=== PATIENT | male | born 1960 | race Caucasian/White ===

== ENCOUNTER → 2017-11-10 | Outpatient (CLI) | payer BC ==
[2017-11-11 17:18] LABS: Influenza A Negative (NEGATIVE); Influenza B Positive (NEGATIVE)
== END | disposition home or self-care (01) ==
LOC: LAB 17:02 → LAB SHORT 17:02
PROVIDERS: Nurse Practitioner Family
DX: J02.9 Acute pharyngitis, unspecified (principal)
CPT/HCPCS: 87804

== ENCOUNTER 2023-03-07 14:39 | Inpatient (IN) | payer BC ==
[~2023-03-07] VITALS: Ht 175.3 cm; Wt 147.4 kg
[2023-03-07 15:21] LABS: BASOPHILS ABSOLUTE AUTO 0.03 K/mm3 (0.00-0.23); BASOPHILS PERCENT AUTO 0 % (0-2); EOSINOPHILS ABSOLUTE AUTO 0.11 K/mm3 (0.00-0.68); EOSINOPHILS PERCENT AUTO 1 % (0-6); Hematocrit 37.7 % (37.0-53.0); Hemoglobin 11.9 g/dL (13.5-17.5); IMMATURE GRAN ABSOLUTE AUTO 0.06 K/mm3 (0.00-0.10); IMMATURE GRAN PERCENT AUTO 1 % (0-1); LYMPHOCYTES PERCENT AUTO 11 % (21-46); MONOCYTES ABSOLUTE AUTO 0.72 K/mm3 (0.16-1.47); MONOCYTES PERCENT AUTO 7 % (4-13); Mean Corpuscular HGB 31.9 pg (26.0-34.0); Mean Corpuscular HGB Conc 31.6 g/dL (31.5-36.5); Mean Corpuscular Volume 101 fL (80-100); Mean Platelet Volume 12.2 fL (9.1-12.4); NEUTROPHILS ABSOLUTE AUTO 8.76 K/mm3 (1.96-9.15); NEUTROPHILS PERCENT AUTO 81 % (41-73); NRBC ABSOLUTE 0.06 K/mm3 (0.00-0.02); NRBC Auto 0.6 /100 WBC (0.0-0.2); Platelet Count 203 K/mm3 (150-400); RDW Coefficient Variation 15.1 % (11.7-14.2); Red Blood Cell Count 3.73 M/mm3 (4.30-5.90); White Blood Cell Count 10.88 K/mm3 (4.00-11.30)
[2023-03-07 15:38] LABS: Albumin, Blood 3.7 g/dL (3.4-5.0); Albumin/Globulin Ratio 1.2 (0.8-1.8); Bilirubin, Total 0.7 mg/dL (0.1-1.0); Bun/Creatinine Ratio 26.8 (12.0-20.0); Calcium, Blood 8.8 mg/dL (8.5-10.1); Creatinine, Blood 0.93 mg/dL (0.60-1.20); Globulin, Blood 3.2 g/dL (2.2-4.0); Potassium, Blood 4.1 mmol/L (3.5-5.5); Total Protein, Blood 6.9 g/dL (6.4-8.2)
[2023-03-07] MEDS ORDERED: GLIP5ER PO (16:26)
[2023-03-07] MEDS ORDERED: LOSA50 PO ×2 (16:26→16:27)
[2023-03-07] MEDS ORDERED: ACTOS30 MG PO ×2 (16:26→16:27)
[2023-03-07] MEDS ORDERED: INDO50 PO (16:27)
[2023-03-07] MEDS ORDERED: METO25ER PO (16:27)
[2023-03-07] MEDS ORDERED: AMLODIPINE BESYL5 MG PO (16:27)
[2023-03-07] MEDS ORDERED: LIPITOR80 MG PO (16:28)
[2023-03-07] MEDS ORDERED: METFORMIN HCL500 M3 PO (16:28)
[2023-03-07] MEDS ORDERED: ALLO300 PO (16:28)
[2023-03-07 16:32] LABS: Base Excess Venous 9.1 mmol/L; Bicarbonate Venous 31.2 mmol/L (24.0-30.0); PCO2 Venous 60.2 mmHg (38-42); pH Blood Venous 7.37 (7.34-7.37)
[2023-03-07 18:24] VITALS: BP 152/95
[2023-03-07 19:36] VITALS: BP 159/93
[2023-03-07 20:00] LABS: Base Excess Venous 11.2 mmol/L; Bicarbonate Venous 33.4 mmol/L (24.0-30.0); PCO2 Venous 51.4 mmHg (38-42); pH Blood Venous 7.45 (7.34-7.37)
[2023-03-07] MEDS ORDERED: ASPI81CH PO (20:46)
[2023-03-07] MEDS ORDERED: MULVITA PO (20:47)
[2023-03-07 23:21] VITALS: BP 150/92
[2023-03-08 03:32] VITALS: BP 166/83
[2023-03-08 04:10] LABS: BASOPHILS ABSOLUTE AUTO 0.04 K/mm3 (0.00-0.23); BASOPHILS PERCENT AUTO 0 % (0-2); EOSINOPHILS ABSOLUTE AUTO 0.17 K/mm3 (0.00-0.68); EOSINOPHILS PERCENT AUTO 1 % (0-6); Hematocrit 39.2 % (37.0-53.0); Hemoglobin 12.2 g/dL (13.5-17.5); IMMATURE GRAN ABSOLUTE AUTO 0.13 K/mm3 (0.00-0.10); IMMATURE GRAN PERCENT AUTO 1 % (0-1); LYMPHOCYTES ABSOLUTE AUTO 1.17 K/mm3 (0.84-5.20); LYMPHOCYTES PERCENT AUTO 9 % (21-46); MONOCYTES ABSOLUTE AUTO 0.67 K/mm3 (0.16-1.47); MONOCYTES PERCENT AUTO 5 % (4-13); Mean Corpuscular HGB 31.7 pg (26.0-34.0); Mean Corpuscular HGB Conc 31.1 g/dL (31.5-36.5); Mean Corpuscular Volume 102 fL (80-100); Mean Platelet Volume 12.5 fL (9.1-12.4); NEUTROPHILS ABSOLUTE AUTO 10.53 K/mm3 (1.96-9.15); NEUTROPHILS PERCENT AUTO 83 % (41-73); NRBC ABSOLUTE 0.08 K/mm3 (0.00-0.02); NRBC Auto 0.6 /100 WBC (0.0-0.2); Platelet Count 203 K/mm3 (150-400); RDW Coefficient Variation 15.2 % (11.7-14.2); RDW Standard Deviation 54.8 fL (35.1-46.3); Red Blood Cell Count 3.85 M/mm3 (4.30-5.90); White Blood Cell Count 12.71 K/mm3 (4.00-11.30)
[2023-03-08 04:28] LABS: Albumin, Blood 3.6 g/dL (3.4-5.0); Albumin/Globulin Ratio 1.1 (0.8-1.8); Bilirubin, Total 0.6 mg/dL (0.1-1.0); Bun/Creatinine Ratio 23.5 (12.0-20.0); Calcium, Blood 8.7 mg/dL (8.5-10.1); Creatinine, Blood 0.98 mg/dL (0.60-1.20); Globulin, Blood 3.3 g/dL (2.2-4.0); Magnesium, Blood 1.5 mg/dL (1.6-2.4); Potassium, Blood 4.1 mmol/L (3.5-5.5); Total Protein, Blood 6.9 g/dL (6.4-8.2)
--- NOTE | 2023-03-08 06:05 | NUR ---
SHIFT SUMMARY PATIENT ALERT AND ORIENTED x4, PLEASANT AND COOPERATIVE WITH CARE, ABLE TO MAKE NEEDS KNOWN TO STAFF. BP STABLE, TELE READING SINUS RHYTHM WITH 1ST DEGREE HB 70s-80s, REMAINS ON 6L NC WITH O2 SAT LOW TO MID 90s. PATIENT WOULD DESAT INTO MID 80s DURING DEEP SLEEP. PATIENT DECLINED CPAP. RT AWARE. PATIENT STANDBY ASSIST TO BATHROOM, ADEQUATE OUTPUT THIS SHIFT. NO OTHER SIGNIFICANT CHANGES THIS SHIFT, WILL REPORT TO DAY SHIFT RN. PATIENT EDUCATED ON IGNTION RISK. PATIENT VERBALIZED UNDERSTANDING. NO IGNITION RISK NOTED AT THIS TIME. WILL CONTINUE TO MONITOR RISK.
[2023-03-08 07:41] VITALS: BP 139/74
[2023-03-08 11:50] VITALS: BP 174/95
[2023-03-08 16:04] VITALS: BP 159/73
--- NOTE | 2023-03-08 18:24 | NUR ---
SHIFT SUMMARY; ASSUMED CARE AT 0700. A/A/OX4, INDEPNDANT IN ROOM. 02 VIA NC 5L SATS 93%. ECHO COMPLETED TODAY. DENIES CHEST PAIN. MEDS PER EMAR. VSS, WILL CONTINUE TO MONITOR AND TREAT UNTIL CHANGE OF SHIFT.
[2023-03-08 19:38] VITALS: BP 144/83
--- NOTE | 2023-03-08 21:08 | NUR ---
ASSUMPTION OF CARE THIS RN ASSUMED CARE OF PATIENT AT 1900. REPORT TAKEN FROM ALTHEA GRIDER. PT ON 5L VIA NC WITH SPO2 >92%. BLE EDEMA NOTED. PT A&O X4. PT EDUCATED ON USING URINAL FOR ACCURATE I/O'S, PT VERBALIZED UNDERSTANDING. INDEPENDENT WITH ADL'S. CONTINUOUS SPO2 MONITORING. OTHER VITALS STABLE AT THIS TIME. BED IN LOWEST POSITION AND CALL LIGHT WITHIN REACH.
[2023-03-08 23:19] VITALS: BP 134/84
[2023-03-09 03:27] VITALS: BP 146/94
[2023-03-09 03:51] LABS: Hematocrit 37.9 % (37.0-53.0); Hemoglobin 11.5 g/dL (13.5-17.5); Mean Corpuscular HGB 31.4 pg (26.0-34.0); Mean Corpuscular HGB Conc 30.3 g/dL (31.5-36.5); Mean Corpuscular Volume 104 fL (80-100); Mean Platelet Volume 12.2 fL (9.1-12.4); NRBC ABSOLUTE 0.05 K/mm3 (0.00-0.02); NRBC Auto 0.5 /100 WBC (0.0-0.2); Platelet Count 183 K/mm3 (150-400); RDW Coefficient Variation 14.9 % (11.7-14.2); RDW Standard Deviation 55.7 fL (35.1-46.3); Red Blood Cell Count 3.66 M/mm3 (4.30-5.90); White Blood Cell Count 10.05 K/mm3 (4.00-11.30)
[2023-03-09 04:18] LABS: Albumin, Blood 3.3 g/dL (3.4-5.0); Bilirubin, Total 0.7 mg/dL (0.1-1.0); Globulin, Blood 3.2 g/dL (2.2-4.0); Magnesium, Blood 1.6 mg/dL (1.6-2.4); Potassium, Blood 3.9 mmol/L (3.5-5.5); Thyroid Stimulating Hormone 0.389 uIU/mL (0.360-4.800); Total Protein, Blood 6.5 g/dL (6.4-8.2)
--- NOTE | 2023-03-09 04:57 | NUR ---
SHIFT SUMMARY NO ACUTE CHANGES OVERNIGHT. PT ON 5-6L VIA NC TO MAINTAIN SPO2 >90%. PT NOTED TO DESAT BRIEFLY WHILE SLEEPING; PT REPORTS NEEDING A SLEEP STUDY IN THE PAST FOR SLEEP APNEA BUT HAS BEEN "PUTTING IT OFF". BP STABLE. SR ON MONITOR WITH HR 70'S. DYSPNEA NOTED WITH EXERTION. PT USING URINAL FOR ACCURATE I&O'S. A&O X4. ABLE TO MAKE NEEDS KNOWN. FIRE/IGNITION SAFETY EDUCATION AND ASSESSMENT DONE. NO IGNITION SOURCE NOTED. PT VERBALIZED UNDERSTANDING. BED IN LOWEST POSITION AND CALL LIGHT WITHIN REACH. THIS RN WILL CONTINUE TO MONITOR UNTIL SHIFT CHANGE AT 0700.
[2023-03-09 08:23] VITALS: BP 165/95
[2023-03-09 11:38] VITALS: BP 143/82
--- NOTE | 2023-03-09 13:31 | NUR ---
ASSUMED CARE OF PT AT 0700 THIS AM. PT AWAKE, A&OX4. FIRE SAFETY EDUCATION REVIEWED WITH PT, HE VERBALIZES UNDERSTANDING AND DENIES ANY SOURCES OF IGNITION IN HIS POSESSION. PT IS ABLE TO USE CALL LIGHT FOR NEEDS, CALL LIGHT IN REACH. PT DENIES NEEDS AT THIS TIME. WILL CONTINUE TO MONITOR AND CARE FOR PT.
[2023-03-09 16:18] VITALS: BP 146/94
--- NOTE | 2023-03-09 18:24 | NUR ---
NO ACUTE CHANGES T/O THE SHIFT. PT CONTINUES TO REQUIRE 6L O2 VIA NC, DESATS WITH EXERTION. ECHO READ AND DR HUNT IN TO SEE PT AND HIS TO DISCUSS RESULTS AND CARE PLAN. PT HAS HAD NO COMPLAINTS, NO PAIN. DIURESIS EFFECTIVE, PT HAS HAD OVER 2000ML OUT TODAY. D-DIMER NEGATIVE. FIRE SAFETY INCLUDED IN HOURLY ROUNDING. PT IS ABLE TO USE CALL LIGHT FOR NEEDS, CALL LIGHT IN REACH, WILL CONTINUE TO MONITOR AND GIVE REPORT TO NOC SHIFT RN.
[2023-03-09 20:33] VITALS: BP 143/82
[2023-03-09 23:19] VITALS: BP 156/95
[2023-03-10 03:51] VITALS: BP 148/87
[2023-03-10 04:16] LABS: Hematocrit 36.8 % (37.0-53.0); Hemoglobin 11.3 g/dL (13.5-17.5); Mean Corpuscular HGB 31.2 pg (26.0-34.0); Mean Corpuscular HGB Conc 30.7 g/dL (31.5-36.5); Mean Corpuscular Volume 102 fL (80-100); Mean Platelet Volume 12.7 fL (9.1-12.4); Platelet Count 166 K/mm3 (150-400); RDW Coefficient Variation 14.6 % (11.7-14.2); Red Blood Cell Count 3.62 M/mm3 (4.30-5.90); White Blood Cell Count 9.66 K/mm3 (4.00-11.30)
[2023-03-10 04:34] LABS: Bun/Creatinine Ratio 22.8 (12.0-20.0); Calcium, Blood 8.4 mg/dL (8.5-10.1); Creatinine, Blood 1.01 mg/dL (0.60-1.20); Magnesium, Blood 1.5 mg/dL (1.6-2.4); Potassium, Blood 3.3 mmol/L (3.5-5.5)
--- NOTE | 2023-03-10 05:06 | NUR ---
SHIFT SUMMARY NO ACUTE CHANGES OVERNIGHT. PT CONTINUES TO NEED 5-6L VIA NC TO MAINTAIN SPO2 >90%. APNEIC PERIODS NOTED WHILE SLEEPING. BP STABLE. SR ON MONITOR WITH PAC'S, HR 60-70'S. AFEBRILE. PT DENIES SOB AT REST. INDEPENDENT WITH ADL'S. USING URINAL WITH URINATION FOR ACCURATE I/O'S. PT DENIES IGNITON RISK. VERBALIZED UNDERSTANDING ON FIRE/IGNITION SAFETY EDUCATION WHILE WEARING O2 AND WHILE IN THE HOSPITAL. CALLING APPROPRIATELY. BED IN LOWEST POSITION AND CALL LIGHT WITHIN REACH. THIS RN WILL CONTINUE TO MONITOR UNTIL SHIFT CHANGE AT 0700.
[2023-03-10 07:35] VITALS: BP 150/81
[2023-03-10 11:24] VITALS: BP 123/71
--- NOTE | 2023-03-10 12:54 | NUR ---
Dr. Sue is here seeing the patient.
[2023-03-10 15:54] VITALS: BP 141/84
--- NOTE | 2023-03-10 16:48 | NUR ---
Pt's states that her blood pressure normally is 90s systolic, occasionally low 100s. Pt c/o nausea again, and was given zofran at this time. Vital signs are stable.
[2023-03-10 19:41] VITALS: BP 125/69
[2023-03-11] VITALS (13 sets, daily range): BP systolic 121–155; BP diastolic 64–93
[2023-03-11 03:58] LABS: CHOL/HDL RATIO 2.6; Cholesterol 132 mg/dL (50-200); HDL Cholesterol 51 mg/dL (>39); LDL/HDL RATIO 1.2; Low Density Lipoprotein Chol 60 mg/dL (0-110); Triglycerides 103 mg/dL (30-160); Very Low Density Lipoprot Chol 20 mg/dL (6-32)
--- NOTE | 2023-03-11 05:30 | NUR ---
SHIFT SUMMARY THIS RN ASSUMED CARE OF PATIENT AT 1900. NO ACUTE CHANGES DURING THIS SHIFT. BP STABLE. SR WITH PAC'S NOTED ON MONITOR WITH HR 60-70'S. AFEBRILE. ON 2-4L VIA NC WITH SPO2 >92%. A&O X4. ABLE TO MAKE NEEDS KNOWN. PT HAS BEEN NPO SINCE MIDNIGHT FOR LIKELY ANGIO PROCEDURE THIS AM. USING URINAL INDEPENDENTLY. PT & FAMILY EDUCATED RE: IGNITION SOURCES AND RISK OF INJURY WHILE OXYGEN IS IN USE. PT DENIES SMOKING & PT VERBALIZED UNDERSTANDING. BED IN LOWEST POSITION AND CALL LIGHT WITHIN REACH. THIS RN WILL CONTINUE TO MONITOR UNTIL SHIFT CHANGE AT 0700.
--- NOTE | 2023-03-11 07:30 | NUR ---
Pt was taken in his bed to the heart center for angiogram.
[2023-03-11 09:43] LABS: Hematocrit 37.9 % (37.0-53.0); Hemoglobin 12.2 g/dL (13.5-17.5); Mean Corpuscular HGB 31.6 pg (26.0-34.0); Mean Corpuscular HGB Conc 32.2 g/dL (31.5-36.5); Mean Corpuscular Volume 98 fL (80-100); Mean Platelet Volume 11.5 fL (9.1-12.4); Platelet Count 163 K/mm3 (150-400); RDW Coefficient Variation 14.6 % (11.7-14.2); RDW Standard Deviation 51.9 fL (35.1-46.3); Red Blood Cell Count 3.86 M/mm3 (4.30-5.90); White Blood Cell Count 10.65 K/mm3 (4.00-11.30)
[2023-03-11 10:11] LABS: Alanine Aminotransfer (ALT/SGP 40 U/L (12-78); Albumin, Blood 3.4 g/dL (3.4-5.0); Alk Phos 86 U/L (50-136); Anion Gap Unable to Calculate mmol/L (6-16); Aspartate Aminotrans (AST/SGOT 20 U/L (12-37); Bilirubin, Total 0.8 mg/dL (0.1-1.0); Blood Urea Nitrogen 23 mg/dL (8-24); Bun/Creatinine Ratio 24.4 (12.0-20.0); Calcium, Blood 8.8 mg/dL (8.5-10.1); Chloride, Blood 85 mmol/L (98-108); Creatinine, Blood 0.94 mg/dL (0.60-1.20); Globulin, Blood 3.4 g/dL (2.2-4.0); Glomerular Filtration Rate 91 (60-); Glucose, Blood 150 mg/dL (70-99); Potassium, Blood 3.3 mmol/L (3.5-5.5); Sodium, Blood 138 mmol/L (136-145); Total Protein, Blood 6.8 g/dL (6.4-8.2)
[2023-03-11 10:13] LABS: CO2, Blood >45 mmol/L (21-32)
--- NOTE | 2023-03-11 10:43 | NUR ---
Pt returned from the heart center to PCU 7 at 0925. He is alert, oriented and has 4 family/friends at the bedside. Vital signs are stable except that his spo2 dropped to 85% and is requiring oxygen at 4 l/min to keep spo2 90% at least. No dyspnea, no discomfort, and no c/o of pain. Denies any chest discomfort nor right arm/hand discomfort where the arterial access was done for the angiogram. White immobilizer in place to restrict movement of the right wrist during recovery. PT was advised of the activity restrictions, and to call staff for supervision during any activity OOB during this recovery period. Right wrist site was visualized upon return to the room, and over the last hour. Site remains without any bleeding, swelling, numbness, pain, tingling nor bruising. Capillary refill in the right hand fingers is 2 seconds. TR band is in place, reportedly with 12 cc air in the band. Pt ate breakfast and took oral and IV medications after return. Hospitalist Dr. Cohen here to see the patient. New order noted after lab reported elevated Carbon dioxide level.
--- NOTE | 2023-03-11 12:20 | NUR ---
3 cc air removed from the TR band.
--- NOTE | 2023-03-11 13:35 | NUR ---
TR Band is now fully deflated. Site remains without any swelling, bruising, nor bleeding. Pt has no discomfort.
--- NOTE | 2023-03-11 14:57 | NUR ---
TR band was removed 1 hour after deflation. Cleaned the area with rubbing alcohol and applied sterile tegederm. No bruising, no bleeding, no swelling. White immobilizer board was replaced and pt reminded of the activity restrictions.
--- NOTE | 2023-03-11 18:15 | NUR ---
Pt has been sleepy most of the day. Awakens for meals, toileting, and conversations. expressed concern about his mild confusion, noted since he came back from angiogram this morning at 0930. Confusion could be from lack of sleep, interrupted sleep (diuretics, wakened at MN and 0300 for vital signs & labs), elevated CO2 levels post angiogram, and medications given during the angiogram. The pt says that he feels a little "foggy". Appropriate in conversation, and using his call light when he needs to get up to toilet.
--- NOTE | 2023-03-11 21:42 | NUR ---
METOPROLOL PT HAS HAD SOME CONFUSION OVERNIGHT. PT CHEWED AND SWALLOWED HIS 2100 DOSE OF METOPROLOL EXTENDED RELEASED. PT WAS EDUCATED THAT HE IS NOT TO CHEW THIS PILL IT IS EXTENDED RELEASED. LOT PORTERCHEO CALDERA MADE AWARE. NO ACUTE EVENTS ON TELE OVERNIGHT, AND NO ACUTE CHANGES IN BLOOD PRESSURE.
[2023-03-12 00:14] VITALS: BP 148/79
[2023-03-12 04:14] LABS: Hematocrit 38.4 % (37.0-53.0); Hemoglobin 12.5 g/dL (13.5-17.5); Mean Corpuscular HGB 31.5 pg (26.0-34.0); Mean Corpuscular HGB Conc 32.6 g/dL (31.5-36.5); Mean Corpuscular Volume 97 fL (80-100); Mean Platelet Volume 12.1 fL (9.1-12.4); Platelet Count 170 K/mm3 (150-400); RDW Coefficient Variation 14.4 % (11.7-14.2); RDW Standard Deviation 50.4 fL (35.1-46.3); Red Blood Cell Count 3.97 M/mm3 (4.30-5.90); White Blood Cell Count 10.34 K/mm3 (4.00-11.30)
[2023-03-12 04:43] LABS: Albumin, Blood 3.5 g/dL (3.4-5.0); Bilirubin, Total 0.8 mg/dL (0.1-1.0); Bun/Creatinine Ratio 25.4 (12.0-20.0); Calcium, Blood 9.2 mg/dL (8.5-10.1); Creatinine, Blood 1.18 mg/dL (0.60-1.20); Globulin, Blood 3.4 g/dL (2.2-4.0); Magnesium, Blood 1.7 mg/dL (1.6-2.4); Potassium, Blood 2.6 mmol/L (3.5-5.5); Total Protein, Blood 6.9 g/dL (6.4-8.2)
[2023-03-12 04:57] VITALS: BP 127/67
--- NOTE | 2023-03-12 05:53 | NUR ---
SHIFT SUMMARY PT HAS RESTED T/O THE NIGHT. S/P ANGIO, RADIAL SITE WNL. DRESSING C/D/I, AND ARM BOARD IN PLACE. PT A LITTLE MORE CONFUSED POST SURGERY. PT SLEEPS DEEPLY AND WHEN HE WAKES TO USE THE BATHROOM HE IS IMPULSIVE AND CONFUSED TO HIS SURROUNDINGS. HOWEVER A FEW MINUTES AFTER WAKING PT IS A/OX4 AND ANSWERS MY QUESTIONS APPROPRIATELY. PT AWOKE OUT OF A DEEP SLEEP REMOVED HIS TELE AND WANDERED INTO THE HALLWAY WITHOUT A SHIRT LOOKING FOR THE BATHROOM, BED ALARM IN PLACE FOR SAFETY. VITALS ARE STABLE. PT ON 4.5 L, WHILE SLEEPING PT DESATS IN THE 80'S. SATS WNL ON 4.5L. RESP E/U. NO OTHER CHANGES TO REPORT OVERNIGHT. BED IN LOWEST POSITION, CALL LIGHT WITHIN REACH.
--- NOTE | 2023-03-12 06:00 | NUR ---
FIRE RISK ASSESSED THIS SHIFT, PT EDUCATED ON FIRE RISKS AND IGNITION SOURCES. PT DENIES HAVING IGNITION SOURCES.
--- NOTE | 2023-03-12 07:53 | NUR ---
UPDATE PT EDUCATED ON IGNITION SOURCES, OXYGEN USE, AND FIRE PREVENTION
[2023-03-12 08:16] VITALS: BP 118/62
[2023-03-12 10:57] VITALS: BP 92/52
[2023-03-12 14:58] LABS: PO2 Arterial 66.1 mmHg (80-100)
[2023-03-12 15:01] LABS: PCO2 Arterial 74.9 mmHg (35-45)
--- NOTE | 2023-03-12 16:23 | NUR ---
PT UPDATE PT TO MRI AT THIS TIME. ATIVAN GIVEN PER EMAR D/T PT STATING HX OF CLAUSTRAPHOBBIA.
[2023-03-12 17:29] VITALS: BP 115/66
--- NOTE | 2023-03-12 17:50 | NUR ---
SHIFT SUMMARY PT ALERT, ORIENTED MOSTLY, OCCASIONALLY FORGETFUL. SP02>90% ON 2-4L NC. DENIES SOB. TELEMETRY SHOWS MOSTLY NSR/SINUS MIRTA, HR 50'S-70'S. R RADIAL SITE RECOVERED, OPSITE IN PLACE, ARM BOARD IN PLACE. NO BRUISING/BLEEDING. SITE SOFT. PT HAD CRITICAL RESULT IN ABG: C02 74.9. CALL PLACED TO MD HUNT. MD HUNT W/ ORDERS TO GIVE PT MORE TIME. PT TO MRI THIS EVENING. MD HUNT W/ ORDERS FOR X1 ATIVAN FOR ANXIETY/CLAUSTRAPHOBIA, SEE EMAR. PT USED URINAL TO VOID. IN ROOM MOST OF SHIFT. CALL LIGHT IN REACH. SITTING ON SIDE OF BED, EATING DINNER.
[2023-03-12 20:30] VITALS: BP 120/62
[2023-03-13] VITALS (8 sets, daily range): BP systolic 102–140; BP diastolic 48–110
[2023-03-13 03:40] LABS: Hematocrit 39.2 % (37.0-53.0); Hemoglobin 12.6 g/dL (13.5-17.5); Mean Corpuscular HGB 31.1 pg (26.0-34.0); Mean Corpuscular HGB Conc 32.1 g/dL (31.5-36.5); Mean Corpuscular Volume 97 fL (80-100); Mean Platelet Volume 12.1 fL (9.1-12.4); Platelet Count 182 K/mm3 (150-400); RDW Coefficient Variation 14.1 % (11.7-14.2); RDW Standard Deviation 50.3 fL (35.1-46.3); Red Blood Cell Count 4.05 M/mm3 (4.30-5.90); White Blood Cell Count 9.56 K/mm3 (4.00-11.30)
[2023-03-13 04:04] LABS: Albumin, Blood 3.4 g/dL (3.4-5.0); Bilirubin, Total 0.6 mg/dL (0.1-1.0); Bun/Creatinine Ratio 27.2 (12.0-20.0); Calcium, Blood 9.2 mg/dL (8.5-10.1); Creatinine, Blood 1.69 mg/dL (0.60-1.20); Globulin, Blood 3.5 g/dL (2.2-4.0); Total Protein, Blood 6.9 g/dL (6.4-8.2)
--- NOTE | 2023-03-13 05:54 | NUR ---
End of shift note. Pt has slept well this shift. Since Pt had slept well, staff has had minimal interactions but no issues with confusion noted. Pt has been deniz with metop increase. HR as low as 44 per tele monitor. BP stable. Currently no hold parameters on meds. Pt has maintained O2 on 2.5L NC. Pt is able to make needs known, call light is within reach. Education given on fire safety. Pt denies ignition source. Verbalizes understanding of risk.
--- NOTE | 2023-03-13 17:53 | NUR ---
SHIFT SUMMARY PT IS ALERT TO SELF, PLACE, TIME/DATE AND FAMILY BUT NOT TO SITUATION. HE HAS BEEN ABLE TO MAKE HIS NEEDS KNOWN BUT IS STOIC AT TIMES, FOR INSTANCE AT APPROX. 1745 THE PT'S FOUND THIS RN AND STATED THAT THE PT WAS COMPLAINING THAT HE WAS FEELING "FUNNY," AND REPORTED NAUSEA TO HIS BUT DID NOT WANT TO CALL THE NURSE MEANING THIS RN. BP ASSESSED AND STABLE, HR STABLE. NAUSEA MEDICATION WAS PROVIDED. THIS RN EDUCATED PT ON NEED TO REPORT CHANGES SO THAT APPROPRIATE INTERVENTIONS CAN BE PROVIDED. BP AND HR HAVE REMAINED STABLE T/O SHIFT, SEE EMAR REGARDING METOPROLOL ADJUSTMENTS. PT HAS DENIED FEELINGS OF CHEST PAIN/PRESSURE, HE HAS DENIED FEELINGS OF LIGHTHEADEDNESS/DIZZINESS. HE REPORTED A HEADACHE THAT WAS NOT RELIEVED W/ TYLENOL, UNINTERRUPTED REST PROVIDED THERAPEUTIC MEASURE. HE HAS BEEN INDEPENDENT TO BATHROOM T/O SHIFT AND APPEARS STEADY ON HIS FEET. HIS SANJAY HAS BEEN AT BEDSIDE DURING SHIFT. PT IS NOW AT EDGE OF BED EATING DINNER, CALL LIGHT IS W/IN REACH.
[2023-03-14 03:18] VITALS: BP 107/55
[2023-03-14 04:16] LABS: BASOPHILS ABSOLUTE AUTO 0.02 K/mm3 (0.00-0.23); BASOPHILS PERCENT AUTO 0 % (0-2); EOSINOPHILS ABSOLUTE AUTO 0.11 K/mm3 (0.00-0.68); EOSINOPHILS PERCENT AUTO 1 % (0-6); Hematocrit 38.9 % (37.0-53.0); Hemoglobin 12.7 g/dL (13.5-17.5); IMMATURE GRAN ABSOLUTE AUTO 0.02 K/mm3 (0.00-0.10); IMMATURE GRAN PERCENT AUTO 0 % (0-1); LYMPHOCYTES ABSOLUTE AUTO 0.82 K/mm3 (0.84-5.20); LYMPHOCYTES PERCENT AUTO 9 % (21-46); MONOCYTES ABSOLUTE AUTO 0.94 K/mm3 (0.16-1.47); MONOCYTES PERCENT AUTO 10 % (4-13); Mean Corpuscular HGB 31.5 pg (26.0-34.0); Mean Corpuscular HGB Conc 32.6 g/dL (31.5-36.5); Mean Corpuscular Volume 97 fL (80-100); Mean Platelet Volume 12.1 fL (9.1-12.4); NEUTROPHILS ABSOLUTE AUTO 7.44 K/mm3 (1.96-9.15); NEUTROPHILS PERCENT AUTO 80 % (41-73); Platelet Count 173 K/mm3 (150-400); RDW Coefficient Variation 13.9 % (11.7-14.2); RDW Standard Deviation 49.1 fL (35.1-46.3); Red Blood Cell Count 4.03 M/mm3 (4.30-5.90); White Blood Cell Count 9.35 K/mm3 (4.00-11.30)
[2023-03-14 04:40] LABS: Bun/Creatinine Ratio 33.2 (12.0-20.0); Creatinine, Blood 1.87 mg/dL (0.60-1.20); Potassium, Blood 3.1 mmol/L (3.5-5.5)
--- NOTE | 2023-03-14 05:57 | NUR ---
PATIENT RESTED WELL OVERNIGHT. AOX4, FOLLOWS COMMANDS AND MOVES ALL EXTREMETIES WITH EQUAL STRENGTH. SR/SB WITH HR IN THE LOW 50'S WHILE SLEEPING. EVENING DOSE OF METOPROLOL HELD. 4L NC. NAUSEA FROM EARLIER IN THE DAY HAS RESOLVED.
[2023-03-14 08:15] VITALS: BP 141/109
[2023-03-14 11:32] VITALS: BP 105/64
[2023-03-14 11:40] VITALS: BP 127/64
[2023-03-14 15:25] VITALS: BP 114/64
--- NOTE | 2023-03-14 17:14 | NUR ---
SHIFT SUMMARY PT IS ALERT AND ORIENTED X4. VSS, SPO2 MAINTAINED >95% VIA 4L NC. THIS AM, TELE MONITOR CALLED THIS NURSE 3 X TO REPORT SPO2 LEVEL IN 50'S, WHEN THIS NURSE WOULD GO INTO PT ROOM TO ASSESS, APNEIC EPISODE WOULD SUBSIDE AND SPO2 LEVEL WOULD RETURN >95%. HE REPORTS FEELING SOB W/ EXERTION BUT HAS DENIED FEELINGS OF CHEST PAIN/PRESSURE, NAUSEA/VOMITTING WELL LIGHTHEADED/DIZZINESS. HE IS INDEPENDENT IN ROOM AND APPEARS STEADY ON HIS FEET. HIS SANJAY HAS BEEN AT BEDSIDE DURING SHIFT. HE HAS BEEN UP IN CHAIR FOR MAJORITY OF THE SHIFT. CALL LIGHT W/IN REACH.
[2023-03-14 21:14] VITALS: BP 136/87
[2023-03-15] VITALS (7 sets, daily range): BP systolic 95–124; BP diastolic 56–79
--- NOTE | 2023-03-15 06:43 | NUR ---
SHIFT SUMMARY PATIENT ALERT AND ORIENTED X4. HAD NO COMPLAINTS OF PAIN OR SHORTNESS OF BREATH. SPO2 >90% ON 4 LITERS O2 VIA NC. PATIENT HAD NO COMPLAINTS OF PAIN OR SHORTNESS OF BREATH. VITAL SIGNS STABLE, SINUS RHYTHM ON TELE. NO ACUTE ISSUES NOTED OVERNIGHT. PATIENT ASSESSED FOR IGNITION RISK AND EDUCATED ON FIRE SAFETY IN THE HOSPITAL. WILL CONTINUE TO MONITOR.
--- NOTE | 2023-03-15 07:40 | NUR ---
Bedside report from CHEO Harris. The pt awakens easily for vital signs. Alert, oriented x 4. States that he doesn't believe that he had a stroke, because he doesn't feel like it. PERRL, denies any numbness, tingling, weakness. Strength and movement, facial expressions noted symmetrical bilaterally. Sitting on side of bed at this time, drinking decaf coffee.
[2023-03-15 09:05] LABS: BASOPHILS ABSOLUTE AUTO 0.03 K/mm3 (0.00-0.23); BASOPHILS PERCENT AUTO 0 % (0-2); EOSINOPHILS ABSOLUTE AUTO 0.12 K/mm3 (0.00-0.68); EOSINOPHILS PERCENT AUTO 1 % (0-6); Hematocrit 38.5 % (37.0-53.0); Hemoglobin 12.6 g/dL (13.5-17.5); IMMATURE GRAN ABSOLUTE AUTO 0.02 K/mm3 (0.00-0.10); IMMATURE GRAN PERCENT AUTO 0 % (0-1); LYMPHOCYTES ABSOLUTE AUTO 0.95 K/mm3 (0.84-5.20); LYMPHOCYTES PERCENT AUTO 12 % (21-46); MONOCYTES ABSOLUTE AUTO 0.73 K/mm3 (0.16-1.47); MONOCYTES PERCENT AUTO 9 % (4-13); Mean Corpuscular HGB 31.5 pg (26.0-34.0); Mean Corpuscular HGB Conc 32.7 g/dL (31.5-36.5); Mean Corpuscular Volume 96 fL (80-100); Mean Platelet Volume 12.2 fL (9.1-12.4); NEUTROPHILS ABSOLUTE AUTO 6.43 K/mm3 (1.96-9.15); NEUTROPHILS PERCENT AUTO 78 % (41-73); Platelet Count 180 K/mm3 (150-400); RDW Coefficient Variation 13.6 % (11.7-14.2); RDW Standard Deviation 48.4 fL (35.1-46.3); White Blood Cell Count 8.28 K/mm3 (4.00-11.30)
[2023-03-15 09:12] LABS: PCO2 Arterial 68.5 mmHg (35-45); PO2 Arterial 57.7 mmHg (80-100)
[2023-03-15 09:25] LABS: Albumin, Blood 3.3 g/dL (3.4-5.0); Bilirubin, Total 0.5 mg/dL (0.1-1.0); Bun/Creatinine Ratio 41.1 (12.0-20.0); Calcium, Blood 9.3 mg/dL (8.5-10.1); Creatinine, Blood 1.51 mg/dL (0.60-1.20); Globulin, Blood 3.4 g/dL (2.2-4.0); Potassium, Blood 3.6 mmol/L (3.5-5.5); Total Protein, Blood 6.7 g/dL (6.4-8.2)
--- NOTE | 2023-03-15 17:10 | NUR ---
Attempted to wean pt completely off of oxygen. He is still requiring 1 l/min to keep spo2 at least 88-90%. Pt walked in the hallway, two loops around the unit, with 1 l/min of oxygen and did very well. His and myself were with him.
[2023-03-16 04:51] VITALS: BP 107/71
--- NOTE | 2023-03-16 06:08 | NUR ---
SHIFT SUMMARY PATIENT ALERT AND ORIENTED X4. HAD NO COMPLAINTS OF PAIN OR SHORTNESS OF BREATH. HAD SLEEP STUDY CONDUCTED OVERNIGHT. PATIENT ON 1 LITER O2 WHILE AWAKE AND 2 LITERS O2 WHILE SLEEPING. VITAL SIGNS STABLE. NO ACUTE ISSUES NOTED OVERNIGHT. PATIENT ASSESSED FOR IGNITION RISK AND EDUCATED ON FIRE SAFETY IN THE HOSPITAL. WILL CONTINUE TO MONITOR. CALL LIGHT WITHIN REACH.
[2023-03-16 07:46] VITALS: BP 105/80
[2023-03-16 07:46] LABS: BASOPHILS ABSOLUTE AUTO 0.03 K/mm3 (0.00-0.23); BASOPHILS PERCENT AUTO 0 % (0-2); EOSINOPHILS ABSOLUTE AUTO 0.12 K/mm3 (0.00-0.68); EOSINOPHILS PERCENT AUTO 2 % (0-6); Hemoglobin 12.7 g/dL (13.5-17.5); IMMATURE GRAN ABSOLUTE AUTO 0.01 K/mm3 (0.00-0.10); IMMATURE GRAN PERCENT AUTO 0 % (0-1); LYMPHOCYTES PERCENT AUTO 12 % (21-46); MONOCYTES ABSOLUTE AUTO 0.66 K/mm3 (0.16-1.47); MONOCYTES PERCENT AUTO 10 % (4-13); Mean Corpuscular HGB 31.4 pg (26.0-34.0); Mean Corpuscular HGB Conc 32.6 g/dL (31.5-36.5); Mean Corpuscular Volume 96 fL (80-100); Mean Platelet Volume 11.8 fL (9.1-12.4); NEUTROPHILS ABSOLUTE AUTO 5.25 K/mm3 (1.96-9.15); NEUTROPHILS PERCENT AUTO 77 % (41-73); Platelet Count 161 K/mm3 (150-400); RDW Coefficient Variation 13.6 % (11.7-14.2); RDW Standard Deviation 48.3 fL (35.1-46.3); Red Blood Cell Count 4.05 M/mm3 (4.30-5.90); White Blood Cell Count 6.87 K/mm3 (4.00-11.30)
--- NOTE | 2023-03-16 07:48 | NUR ---
Attempted to wean off of oxygen. 92% SpO2 on 2 l/min; 83% on room air. Sitting on side of bed, drinking coffee, in no distress nor dyspnea. Spo2 improved to 92% on 1 l/min.
--- NOTE | 2023-03-16 07:58 | NUR ---
Pt is alert oriented and pleasantly conversant. Relays to me details of last night, his perspective on how well he slept during the overnight sleep oximetry study. He states that his breathing is good this morning. Sitting up on side of bed, eating breakfast.
[2023-03-16 08:05] LABS: Albumin, Blood 3.5 g/dL (3.4-5.0); Bilirubin, Total 0.5 mg/dL (0.1-1.0); Bun/Creatinine Ratio 39.4 (12.0-20.0); Calcium, Blood 9.8 mg/dL (8.5-10.1); Creatinine, Blood 1.55 mg/dL (0.60-1.20); Globulin, Blood 3.5 g/dL (2.2-4.0); Potassium, Blood 3.3 mmol/L (3.5-5.5)
[2023-03-16] MEDS ORDERED: TORS10 PO (12:40)
== END 2023-03-16 15:04 | disposition home or self-care (01) | DRG 286 ==
LOC: ER 14:39 → PCU 17:42
PROVIDERS: Hospitalist; Internal Medicine; Physician Assistant; ADMIT Student in an Organized Health Care Education/Training Program
PROC: 5A09357 Assistance with Respiratory Ventilation, Less than 24 Consecutive Hours, Continuous Positive Airway Pressure (ICD-10-PCS; principal; 2023-03-07)
PROC: 4A023N7 Measurement of Cardiac Sampling and Pressure, Left Heart, Percutaneous Approach (ICD-10-PCS; 2023-03-11)
PROC: B2111ZZ Fluoroscopy of Multiple Coronary Arteries using Low Osmolar Contrast (ICD-10-PCS; 2023-03-11)
PROC: 4A133R1 Monitoring of Arterial Saturation, Peripheral, Percutaneous Approach (ICD-10-PCS; 2023-03-12)
DX: I11.0 Hypertensive heart disease with heart failure (principal); I63.9 Cerebral infarction, unspecified; J96.01 Acute respiratory failure with hypoxia; J96.22 Acute and chronic respiratory failure with hypercapnia; G93.40 Encephalopathy, unspecified; N17.9 Acute kidney failure, unspecified; G47.33 Obstructive sleep apnea (adult) (pediatric); E87.6 Hypokalemia; E66.9 Obesity, unspecified; E11.9 Type 2 diabetes mellitus without complications; I25.10 Atherosclerotic heart disease of native coronary artery without angina pectoris; I50.9 Heart failure, unspecified; E78.5 Hyperlipidemia, unspecified; M10.9 Gout, unspecified; I95.9 Hypotension, unspecified; R94.31 Abnormal electrocardiogram [ECG] [EKG]; I25.9 Chronic ischemic heart disease, unspecified; Z79.84 Long term (current) use of oral hypoglycemic drugs; Z99.81 Dependence on supplemental oxygen; Z79.899 Other long term (current) drug therapy; Z79.02 Long term (current) use of antithrombotics/antiplatelets; Z79.82 Long term (current) use of aspirin
CPT/HCPCS: 36415; 36600; 70551; 71046; 71260; 76937; 80048; 80053; 80061; 82607; 82728; 82746; 82803; 82947; 83036; 83540; 83550; 83735; 83880; 84443; 84484; 85025; 85027; 85379; 93005; 93010; 93306; 93458; 94761; 94762; 96374; 97116; 97162; 97165; 97530; 99152; 99153; 99285-25; A9270; C1769; C1894; J1120; J1644; J1650; J1940; J2060; J2250; J2405; J3010; J3475; J7030; J7050; Q9967

== ENCOUNTER 2023-08-10 10:17 | Observation (INO) | payer BC ==
[~2023-08-10] VITALS: Ht 175.3 cm; Wt 125.0 kg
[~2023-08-10 10:17] MED LIST: ACTOS30 MG PO; ALLO300 PO; AMLODIPINE BESYL5 MG PO; ASPI81CH PO; GLIP5ER PO; INDO50 PO; LIPITOR80 MG PO; LOSA50 PO; METFORMIN HCL500 M3 PO; METO25ER PO; MULVITA PO; TORS10 PO
[2023-08-10 10:59] LABS: BASOPHILS ABSOLUTE AUTO 0.04 K/mm3 (0.00-0.23); BASOPHILS PERCENT AUTO 0 % (0-2); EOSINOPHILS ABSOLUTE AUTO 0.22 K/mm3 (0.00-0.68); EOSINOPHILS PERCENT AUTO 2 % (0-6); Hematocrit 39.1 % (37.0-53.0); Hemoglobin 12.8 g/dL (13.5-17.5); IMMATURE GRAN ABSOLUTE AUTO 0.06 K/mm3 (0.00-0.10); IMMATURE GRAN PERCENT AUTO 1 % (0-1); LYMPHOCYTES ABSOLUTE AUTO 1.16 K/mm3 (0.84-5.20); LYMPHOCYTES PERCENT AUTO 9 % (21-46); MONOCYTES ABSOLUTE AUTO 0.87 K/mm3 (0.16-1.47); MONOCYTES PERCENT AUTO 7 % (4-13); Mean Corpuscular HGB 31.2 pg (26.0-34.0); Mean Corpuscular HGB Conc 32.7 g/dL (31.5-36.5); Mean Corpuscular Volume 95 fL (80-100); Mean Platelet Volume 12.1 fL (9.1-12.4); NEUTROPHILS ABSOLUTE AUTO 10.58 K/mm3 (1.96-9.15); NEUTROPHILS PERCENT AUTO 82 % (41-73); Platelet Count 162 K/mm3 (150-400); RDW Coefficient Variation 13.8 % (11.7-14.2); RDW Standard Deviation 48.6 fL (35.1-46.3); White Blood Cell Count 12.93 K/mm3 (4.00-11.30)
[2023-08-10] MEDS ORDERED: LOSA50 PO (11:15)
[2023-08-10] MEDS ORDERED: KLOR-CON 1010 ME9 PO (11:16)
[2023-08-10 11:17] LABS: Albumin, Blood 3.5 g/dL (3.4-5.0); Albumin/Globulin Ratio 0.9 (0.8-1.8); Bilirubin, Total 0.6 mg/dL (0.1-1.0); Bun/Creatinine Ratio 23.4 (12.0-20.0); Calcium, Blood 9.2 mg/dL (8.5-10.1); Creatinine, Blood 0.9 mg/dL (0.60-1.20); Globulin, Blood 3.7 g/dL (2.2-4.0); Potassium, Blood 4.1 mmol/L (3.5-5.5); Total Protein, Blood 7.2 g/dL (6.4-8.2)
[2023-08-10] MEDS ORDERED: GLIP5ER PO (11:17)
[2023-08-10] MEDS ORDERED: CLOP75 PO (15:42)
[2023-08-10] MEDS ORDERED: METO50ER PO (15:46)
[2023-08-10 16:45] VITALS: BP 154/91
--- NOTE | 2023-08-10 18:15 | NUR ---
ADMISSION/SHIFT SUMMARY NOTE: PT ARRIVED FROM THE ED VIA WHEELCHAIR AT 1633 WITH NO SIGNS OR SYMPTOMS OF DISTRESS. HE WAS ACCOMPANIED BY HIS BOONE THAT SHORTLY WENT HOME AND STATED SHE WOULD BE RETURNING IN THE MORNING. PATIENT WAS HOOKED BACK UP TO TELEMETRY AND ORIENTED AND SETTLED IN THE ROOM. ADMISSION ASSESSMENT COMPLETED. PATIENT IS SITTING AT THE SIDE OF THE BED EATING DINNER, CALL LIGHT WITHIN REACH, BED IN LOWEST POSTION, AND NO SIGNS OR SYMPTOMS OF DISTRESS. SEE ADMISSION ASSESSMENT FOR FURTHER DETAILS. PLAN OF CARE ONGOING.
[2023-08-10 19:17] VITALS: BP 145/71
[2023-08-11 03:06] VITALS: BP 152/80
[2023-08-11 03:33] LABS: BASOPHILS ABSOLUTE AUTO 0.04 K/mm3 (0.00-0.23); BASOPHILS PERCENT AUTO 0 % (0-2); EOSINOPHILS ABSOLUTE AUTO 0.14 K/mm3 (0.00-0.68); EOSINOPHILS PERCENT AUTO 1 % (0-6); Hematocrit 36.4 % (37.0-53.0); Hemoglobin 11.9 g/dL (13.5-17.5); IMMATURE GRAN ABSOLUTE AUTO 0.03 K/mm3 (0.00-0.10); IMMATURE GRAN PERCENT AUTO 0 % (0-1); LYMPHOCYTES ABSOLUTE AUTO 1.37 K/mm3 (0.84-5.20); LYMPHOCYTES PERCENT AUTO 13 % (21-46); MONOCYTES ABSOLUTE AUTO 1.05 K/mm3 (0.16-1.47); MONOCYTES PERCENT AUTO 10 % (4-13); Mean Corpuscular HGB 30.6 pg (26.0-34.0); Mean Corpuscular HGB Conc 32.7 g/dL (31.5-36.5); Mean Corpuscular Volume 94 fL (80-100); Mean Platelet Volume 12.1 fL (9.1-12.4); NEUTROPHILS ABSOLUTE AUTO 8.25 K/mm3 (1.96-9.15); NEUTROPHILS PERCENT AUTO 76 % (41-73); Platelet Count 148 K/mm3 (150-400); RDW Coefficient Variation 13.8 % (11.7-14.2); RDW Standard Deviation 46.9 fL (35.1-46.3); Red Blood Cell Count 3.89 M/mm3 (4.30-5.90); White Blood Cell Count 10.88 K/mm3 (4.00-11.30)
[2023-08-11 04:01] LABS: Anion Gap 5 mmol/L (6-16); Blood Urea Nitrogen 19 mg/dL (8-24); CHOL/HDL RATIO 3.1; CO2, Blood 31 mmol/L (21-32); Calcium, Blood 9.1 mg/dL (8.5-10.1); Chloride, Blood 104 mmol/L (98-108); Cholesterol 153 mg/dL (50-200); Glomerular Filtration Rate 84 (60-); Glucose, Blood 157 mg/dL (70-99); HDL Cholesterol 49 mg/dL (>39); LDL/HDL RATIO 1.6; Low Density Lipoprotein Chol 77 mg/dL (0-110); Potassium, Blood 3.5 mmol/L (3.5-5.5); Sodium, Blood 140 mmol/L (136-145); Triglycerides 133 mg/dL (30-160); Very Low Density Lipoprot Chol 26 mg/dL (6-32)
--- NOTE | 2023-08-11 04:55 | NUR ---
CLEO FRANCOIS, PT RESTING IN BED, PT HAS BEEN SLEEPING FOR A FEW HRS NOW. PT HAD NO CHANGE TO PAIN NO INCREASE OR PAIN TO OTHER AREAS. CALL LIGHT IN REACH . PT HAS ON CPAP WITH 2L OF O2 BLED IN. RESPERATIONS EVEN AND UNLABORED.
[2023-08-11 07:30] VITALS: BP 152/90
--- NOTE | 2023-08-11 14:35 | NUR ---
FIRST PART OF THE STRESS TEST, THE RESTING PORTION, IS COMPLETE, PT UP WALKING IN THE HALLS WITH HIS SPOUSE, NO COMPLAINTS OF CHEST PAIN
[2023-08-11 15:58] VITALS: BP 158/88
--- NOTE | 2023-08-11 17:42 | NUR ---
SUMMARY PT RESTING QUIETLY IN BED, WAKES EASILY, UP INDEPENDENT IN THE ROOM, USES THE CALL LIGHT APPROPRIATELY, SPOUSE WAS IN TO VISIT, PT HAS DENIED ANY CHEST PAIN T/O THE DAY, VSS, WILL CONT TO MONITOR
[2023-08-11 19:35] VITALS: BP 176/96
[2023-08-12 04:05] VITALS: BP 163/90
--- NOTE | 2023-08-12 04:33 | NUR ---
SHIFT SUMMERY. PT RESTING IN BED, PT TRYING TO SLEEP. PT HAS BEEN WEARING CPAP WITH 2L OF 02 BLED IN. PT WITH NO C/O CP OR SOB. CALL LIGHT IN REACH .
[2023-08-12 05:36] LABS: BASOPHILS ABSOLUTE AUTO 0.03 K/mm3 (0.00-0.23); BASOPHILS PERCENT AUTO 0 % (0-2); EOSINOPHILS ABSOLUTE AUTO 0.26 K/mm3 (0.00-0.68); EOSINOPHILS PERCENT AUTO 3 % (0-6); Hematocrit 37.1 % (37.0-53.0); Hemoglobin 12.1 g/dL (13.5-17.5); IMMATURE GRAN ABSOLUTE AUTO 0.04 K/mm3 (0.00-0.10); IMMATURE GRAN PERCENT AUTO 0 % (0-1); LYMPHOCYTES ABSOLUTE AUTO 1.27 K/mm3 (0.84-5.20); LYMPHOCYTES PERCENT AUTO 12 % (21-46); MONOCYTES ABSOLUTE AUTO 0.79 K/mm3 (0.16-1.47); MONOCYTES PERCENT AUTO 8 % (4-13); Mean Corpuscular HGB 30.9 pg (26.0-34.0); Mean Corpuscular HGB Conc 32.6 g/dL (31.5-36.5); Mean Corpuscular Volume 95 fL (80-100); Mean Platelet Volume 12.7 fL (9.1-12.4); NEUTROPHILS ABSOLUTE AUTO 7.85 K/mm3 (1.96-9.15); NEUTROPHILS PERCENT AUTO 77 % (41-73); Platelet Count 158 K/mm3 (150-400); RDW Coefficient Variation 13.7 % (11.7-14.2); RDW Standard Deviation 47.8 fL (35.1-46.3); Red Blood Cell Count 3.92 M/mm3 (4.30-5.90); White Blood Cell Count 10.24 K/mm3 (4.00-11.30)
[2023-08-12 05:59] LABS: Bun/Creatinine Ratio 20.2 (12.0-20.0); Creatinine, Blood 0.99 mg/dL (0.60-1.20); Potassium, Blood 3.8 mmol/L (3.5-5.5)
[2023-08-12 07:38] VITALS: BP 155/97
[2023-08-12] MEDS ORDERED: PANT40 PO (14:13)
== END 2023-08-12 14:55 | disposition home or self-care (01) ==
LOC: ER 10:17 → ERHOLD 10:18 → MEDS 10:18
PROVIDERS: Physician Assistant; ADMIT Internal Medicine
DX: R07.89 Other chest pain (principal); Z86.73 Personal history of transient ischemic attack (TIA), and cerebral infarction without residual deficits; E78.5 Hyperlipidemia, unspecified; E11.9 Type 2 diabetes mellitus without complications; I10 Essential (primary) hypertension; M10.9 Gout, unspecified; G47.33 Obstructive sleep apnea (adult) (pediatric); E66.9 Obesity, unspecified; Z68.36 Body mass index [BMI] 36.0-36.9, adult
CPT/HCPCS: 36415; 71046; 78452; 80048; 80053; 80061; 82947; 83880; 84484; 85025; 93005; 93010; 93017; 94660; 94762; 96372; 96374; 96375; 96376; 99285-25; A9270; A9500; C9113; G0378; J0280; J1650; J1940; J2785; J7030

== ENCOUNTER 2024-01-25 19:10 | Inpatient (IN) | payer OTHER ==
[~2024-01-25] VITALS: Ht 175.3 cm; Wt 126.2 kg
[~2024-01-25 19:10] MED LIST changes: -MOUNJARO2.5 MG/0.5 SC; -NEURONTIN300 MG PO
[2024-01-25] MEDS ORDERED: Piperacillin/Tazobactam Sod 3.375 GM in NS 100 ML IV ONE (23:10)
[2024-01-25] MEDS ORDERED: NS 1,000 ML IV SCH (23:10)
[2024-01-26] VITALS (16 sets, daily range): BP systolic 89–182; BP diastolic 49–98
[2024-01-26 00:02] LABS: BASOPHILS ABSOLUTE AUTO 0.05 K/mm3 (0.00-0.23); BASOPHILS PERCENT AUTO 0 % (0-2); EOSINOPHILS ABSOLUTE AUTO 0.17 K/mm3 (0.00-0.68); EOSINOPHILS PERCENT AUTO 1 % (0-6); Hematocrit 29.7 % (37.0-53.0); Hemoglobin 9.6 g/dL (13.5-17.5); IMMATURE GRAN ABSOLUTE AUTO 0.18 K/mm3 (0.00-0.10); IMMATURE GRAN PERCENT AUTO 1 % (0-1); LYMPHOCYTES PERCENT AUTO 7 % (21-46); MONOCYTES ABSOLUTE AUTO 0.73 K/mm3 (0.16-1.47); MONOCYTES PERCENT AUTO 4 % (4-13); Mean Corpuscular HGB 30.7 pg (26.0-34.0); Mean Corpuscular HGB Conc 32.3 g/dL (31.5-36.5); Mean Corpuscular Volume 95 fL (80-100); Mean Platelet Volume 10.8 fL (9.1-12.4); NEUTROPHILS ABSOLUTE AUTO 18.16 K/mm3 (1.96-9.15); NEUTROPHILS PERCENT AUTO 87 % (41-73); Platelet Count 261 K/mm3 (150-400); RDW Coefficient Variation 13.7 % (11.7-14.2); RDW Standard Deviation 47.4 fL (35.1-46.3); Red Blood Cell Count 3.13 M/mm3 (4.30-5.90); White Blood Cell Count 20.79 K/mm3 (4.00-11.30)
[2024-01-26 00:21] LABS: Albumin, Blood 1.9 g/dL (3.4-5.0); Albumin/Globulin Ratio 0.3 (0.8-1.8); Bilirubin, Total 0.7 mg/dL (0.1-1.0); Bun/Creatinine Ratio 29.7 (12.0-20.0); Calcium, Blood 9.8 mg/dL (8.5-10.1); Creatinine, Blood 1.75 mg/dL (0.60-1.20); Globulin, Blood 5.8 g/dL (2.2-4.0); Potassium, Blood 4.1 mmol/L (3.5-5.5); Total Protein, Blood 7.7 g/dL (6.4-8.2)
[2024-01-26] MEDS ORDERED: Morphine Sulfate 4 MG/1 ML Injection IV PRN (00:40)
[2024-01-26] MEDS ORDERED: Naloxone HCl 0.4MG / ML 1ML Vial IV PRN (00:45)
[2024-01-26] MEDS ORDERED: TraMADol HCl 50 MG Tab PO PRN (00:45)
[2024-01-26] MEDS ORDERED: Ondansetron HCl 2 MG / ML 2ML Vial IV PRN (00:45)
[2024-01-26] MEDS ORDERED: Lactated Ringer's 1,000 ML IV SCH ×3 (01:00→13:10)
--- NOTE | 2024-01-26 03:08 | NUR ---
ADMIT NOTE CALLED ED FOR REPORT AT 0229. REPORT GOTTEN FROM CHEO BOWIE. PT TO ROOM AT 0240. PT NPO AT THIS TIME FOR POSSIBLE GALLBLADDER SURGERY LATER TODAY. DR GUERRERO TO SEE PT TODAY. PT USES CPAP AT HOME FOR SLEEP, REFUSES CPAP HERE, INSTEAD PUT ON 2L O2 WHILE SLEEPING. PT PLACED ON LR AT 75/HR FOR HYDRATION. PT GIVEN ULTRAM FOR PAIN AT TIME OF ADMIT. PT IN A POSITION OF COMFORT, LIGHTS TURNED OFF, GIVEN CALL LIGHT. WILL CONTINUE TO MONITOR.
[2024-01-26 04:40] LABS: BASOPHILS ABSOLUTE AUTO 0.04 K/mm3 (0.00-0.23); BASOPHILS PERCENT AUTO 0 % (0-2); EOSINOPHILS ABSOLUTE AUTO 0.19 K/mm3 (0.00-0.68); EOSINOPHILS PERCENT AUTO 1 % (0-6); Hematocrit 27.7 % (37.0-53.0); IMMATURE GRAN ABSOLUTE AUTO 0.25 K/mm3 (0.00-0.10); IMMATURE GRAN PERCENT AUTO 1 % (0-1); LYMPHOCYTES ABSOLUTE AUTO 1.27 K/mm3 (0.84-5.20); LYMPHOCYTES PERCENT AUTO 6 % (21-46); MONOCYTES ABSOLUTE AUTO 0.78 K/mm3 (0.16-1.47); MONOCYTES PERCENT AUTO 4 % (4-13); Mean Corpuscular HGB 30.6 pg (26.0-34.0); Mean Corpuscular HGB Conc 32.5 g/dL (31.5-36.5); Mean Corpuscular Volume 94 fL (80-100); Mean Platelet Volume 11.5 fL (9.1-12.4); NEUTROPHILS ABSOLUTE AUTO 18.71 K/mm3 (1.96-9.15); NEUTROPHILS PERCENT AUTO 88 % (41-73); Platelet Count 246 K/mm3 (150-400); RDW Coefficient Variation 13.6 % (11.7-14.2); Red Blood Cell Count 2.94 M/mm3 (4.30-5.90); White Blood Cell Count 21.24 K/mm3 (4.00-11.30)
[2024-01-26 04:54] LABS: International Normalized Ratio 1.08; Prothrombin Time Results 11.5 Sec (9.7-11.5)
[2024-01-26 05:08] LABS: Albumin, Blood 1.8 g/dL (3.4-5.0); Albumin/Globulin Ratio 0.3 (0.8-1.8); Bilirubin, Total 0.8 mg/dL (0.1-1.0); Bun/Creatinine Ratio 29.8 (12.0-20.0); Calcium, Blood 9.3 mg/dL (8.5-10.1); Creatinine, Blood 1.71 mg/dL (0.60-1.20); Globulin, Blood 5.3 g/dL (2.2-4.0); Potassium, Blood 4.4 mmol/L (3.5-5.5); Total Protein, Blood 7.1 g/dL (6.4-8.2)
[2024-01-26] MEDS ORDERED: Pantoprazole Sodium 40 MG Tab PO SCH (06:00)
[2024-01-26] MEDS ORDERED: Insulin Regular 100 UNIT/ML 10ML Vial SC SCH (06:00)
[2024-01-26] MEDS ORDERED: NS 250 ML IV PRN (06:00)
[2024-01-26] MEDS ORDERED: Piperacillin/Tazobactam Sod 3.375 GM in NS 100 ML IV SCH (06:00)
[2024-01-26] MEDS ORDERED: FentaNYL Citrate 50 MCG/ML 2 ML Injection IV PRN (08:10)
[2024-01-26] MEDS ORDERED: Metoprolol Succinate 50 MG TABCR PO SCH (09:00)
[2024-01-26] MEDS ORDERED: Docusate Sodium 100 MG Cap PO SCH (09:00)
[2024-01-26] MEDS ORDERED: Lactobacil 2-S.Thermo-Bifido 1 1 Cap PO SCH (09:00)
[2024-01-26] MEDS ORDERED: Indocyanine Green 25 MG Vial IV ONE (13:10)
[2024-01-26] MEDS ORDERED: NEURONTIN300 MG PO (13:32)
[2024-01-26] MEDS ORDERED: MOUNJARO2.5 MG/0.5 SC (13:34)
[2024-01-26] MEDS ORDERED: KLOR-CON 1010 ME9 PO (13:38)
[2024-01-26] MEDS ORDERED: TORS10 PO (13:39)
--- NOTE | 2024-01-26 15:31 | NUR ---
PT BROUGHT FROM FLOOR TO DAY SURGERY FOR PROCEDURE. History, Chart, Medications and Allergies reviewed before start of procedure. Lungs clear T/O to Auscultation. Patient confirms NPO status and agrees with scheduled surgery. Pre-Op teaching done. Pt verbalizes understanding. PT BELONGINGS LEFT IN PERSONAL ROOM ON MEDICAL FLOOR.
[2024-01-26] MEDS ORDERED: Bupivacaine 0.5% HCl 5 MG/ML 30MLVIAL ONE (15:49)
[2024-01-26] MEDS ORDERED: propofoL 20 ML IV ONE (15:56)
[2024-01-26] MEDS ORDERED: Rocuronium Bromide 10 MG/ML 5ML Injection IV ONE (15:57)
[2024-01-26] MEDS ORDERED: FentaNYL Citrate 50 MCG/ML 2 ML Injection ONE ×3 (15:57→18:15)
[2024-01-26] MEDS ORDERED: Lidocaine HCl 2% 20 ML MDV ONE (15:57)
[2024-01-26] MEDS ORDERED: Dexamethasone Sod Phos 10 MG/ML 1ML VIAL ONE (16:09)
[2024-01-26] MEDS ORDERED: Ondansetron HCl 2 MG / ML 2ML Vial ONE (17:07)
[2024-01-26] MEDS ORDERED: Sugammadex Sodium 200 MG/2ML SDV (100 MG/ML) ONE (17:07)
[2024-01-26] MEDS ORDERED: Ketorolac Tromethamine 30mg Vial ONE (18:16)
[2024-01-27 02:39] VITALS: BP 156/102
--- NOTE | 2024-01-27 05:04 | NUR ---
SHIFT SUMMARY: PT IS ALERT AND ORIENTED. PT IS CALM AND COOPERATIVE WITH CARE. PT CALLS APPROPRIATELY. PT IS A STANDBY ASSIST. PT REPORTS PAIN ON ONE OCCASION, GAVE PRN TRAMADOL. PT DENIES NAUSEA, VOMITING, AND SOB. PT SLEPT INTERMITTENTLY THROUGHOUT THE NIGHT. BED IN LOW POSITION, CALL LIGHT WITHIN REACH. WILL CONTINUE TO MONITOR AND REPORT TO DAY NURSE.
[2024-01-27 05:33] LABS: BASOPHILS ABSOLUTE AUTO 0.07 K/mm3 (0.00-0.23); BASOPHILS PERCENT AUTO 0 % (0-2); EOSINOPHILS PERCENT AUTO 0 % (0-6); Hematocrit 30.5 % (37.0-53.0); Hemoglobin 9.5 g/dL (13.5-17.5); IMMATURE GRAN ABSOLUTE AUTO 0.26 K/mm3 (0.00-0.10); IMMATURE GRAN PERCENT AUTO 1 % (0-1); LYMPHOCYTES ABSOLUTE AUTO 0.81 K/mm3 (0.84-5.20); LYMPHOCYTES PERCENT AUTO 4 % (21-46); MONOCYTES ABSOLUTE AUTO 0.45 K/mm3 (0.16-1.47); MONOCYTES PERCENT AUTO 2 % (4-13); Mean Corpuscular HGB 30.7 pg (26.0-34.0); Mean Corpuscular HGB Conc 31.1 g/dL (31.5-36.5); Mean Corpuscular Volume 99 fL (80-100); NEUTROPHILS ABSOLUTE AUTO 20.25 K/mm3 (1.96-9.15); NEUTROPHILS PERCENT AUTO 93 % (41-73); Platelet Count 257 K/mm3 (150-400); RDW Coefficient Variation 13.9 % (11.7-14.2); RDW Standard Deviation 50.2 fL (35.1-46.3); Red Blood Cell Count 3.09 M/mm3 (4.30-5.90); White Blood Cell Count 21.84 K/mm3 (4.00-11.30)
[2024-01-27 06:05] LABS: BAND PERCENT MAN 1 % (0-8); BASOPHILS PERCENT MAN 0 % (0-2); EOSINOPHILS PERCENT MAN 0 % (0-6); LYMPHOCYTES ABSOLUTE MAN 0.43 K/mm3 (0.84-5.20); LYMPHOCYTES PERCENT MAN 2 % (21-46); MONOCYTES ABSOLUTE MAN 0.43 K/mm3 (0.16-1.47); MONOCYTES PERCENT MAN 2 % (4-13); NEUTROPHILS ABSOLUTE MAN 20.96 K/mm3 (1.96-9.15); SEG NEUTROPHILS PERCENT MAN 95 % (41-73); TOTAL CELLS COUNTED 100
[2024-01-27 06:53] LABS: Albumin, Blood 1.6 g/dL (3.4-5.0); Albumin/Globulin Ratio 0.3 (0.8-1.8); Bilirubin, Total 0.9 mg/dL (0.1-1.0); Bun/Creatinine Ratio 21.9 (12.0-20.0); Calcium, Blood 9.4 mg/dL (8.5-10.1); Creatinine, Blood 2.65 mg/dL (0.60-1.20); Globulin, Blood 5.8 g/dL (2.2-4.0); Total Protein, Blood 7.4 g/dL (6.4-8.2)
[2024-01-27] MEDS ORDERED: Insulin Regular 100 UNIT/ML 10ML Vial SC SCH (07:30)
[2024-01-27] MEDS ORDERED: NS 1,000 ML IV SCH (07:55)
[2024-01-27] MEDS ORDERED: Insulin Human Lispro 100 Units/ML 3ML Syringe SC SCH (08:00)
[2024-01-27 08:04] VITALS: BP 103/59
[2024-01-27] MEDS ORDERED: Piperacillin/Tazobactam Sod 2.25 GM in NS 50 ML IV SCH (12:00)
[2024-01-27 16:35] VITALS: BP 118/70
[2024-01-27 18:08] LABS: Bun/Creatinine Ratio 19.6 (12.0-20.0); Calcium, Blood 9.3 mg/dL (8.5-10.1); Creatinine, Blood 3.63 mg/dL (0.60-1.20); Potassium, Blood 4.3 mmol/L (3.5-5.5)
--- NOTE | 2024-01-27 18:36 | NUR ---
PATIERNT HAS ADVANCED TO A CLEAR DIET PER . HE IS NOT BEING COBRA TRANSFERRED FEELS HE CAN SAFELY RECOVER AT HOME. PATEINT BLOOD SUGARS WERE >350 TODAY AT BREAKFAST AND LUNCH AND HE RECEIVED 15 UNITS HUMALOG BOTH TIMES SC. WAS NOTIFIED AND MADE PATEINT NPO UNTIL HIS SUGARS CAME DOWN SIGNIFICANTLY. AT DINNER BLOOD SUGARS WERE 233 AND PATIENT WAS PLACED BACK ON A CLEAR DIET. HE IS INDEPENDANT IN ROOM ONLY NEEDING DISCONNECTED FROM FLUIDS TO USE RESTROOM. HE IS AO X 4 THROUGHOUT THE DAY. HE HAS A DRAIN IN HIS RIGHT SIDE DRAINING DARK BLOOD. HE WAS ABLE TO TAKE A SHOWER TODAY WITHOUT ASSIST. HE WAS MEDICATED X 2 WITH ULTRAM FOR PAIN WITH GOOD RESULTS. VITAL SIGNS ARE STABLE AND HE IS NOT FEBRILE. LUNGS ARE CLEAR TO AUSCULTATION AND HE DENIES ANY CHEST PAIN OR PRESSURE. HE DOES COMPLAIN OF PAIN WHEN GETTING UP FROM A SITTING POSITION BUT DOES RECOVER QUICKLY.
[2024-01-27] MEDS ORDERED: Heparin Sodium,Porcine 5,000 UNIT/0.5 ML SDV SC SCH (21:00)
[2024-01-27 21:16] VITALS: BP 119/74
[2024-01-28 04:13] VITALS: BP 134/93
[2024-01-28 05:08] LABS: BASOPHILS ABSOLUTE AUTO 0.05 K/mm3 (0.00-0.23); BASOPHILS PERCENT AUTO 0 % (0-2); EOSINOPHILS PERCENT AUTO 0 % (0-6); Hematocrit 28.4 % (37.0-53.0); Hemoglobin 8.8 g/dL (13.5-17.5); IMMATURE GRAN ABSOLUTE AUTO 0.53 K/mm3 (0.00-0.10); IMMATURE GRAN PERCENT AUTO 2 % (0-1); LYMPHOCYTES ABSOLUTE AUTO 1.22 K/mm3 (0.84-5.20); LYMPHOCYTES PERCENT AUTO 5 % (21-46); MONOCYTES ABSOLUTE AUTO 0.81 K/mm3 (0.16-1.47); MONOCYTES PERCENT AUTO 3 % (4-13); Mean Corpuscular HGB 30.8 pg (26.0-34.0); Mean Corpuscular Volume 99 fL (80-100); Mean Platelet Volume 11.4 fL (9.1-12.4); NEUTROPHILS ABSOLUTE AUTO 22.65 K/mm3 (1.96-9.15); NEUTROPHILS PERCENT AUTO 90 % (41-73); Platelet Count 264 K/mm3 (150-400); RDW Coefficient Variation 13.8 % (11.7-14.2); RDW Standard Deviation 50.4 fL (35.1-46.3); Red Blood Cell Count 2.86 M/mm3 (4.30-5.90); White Blood Cell Count 25.26 K/mm3 (4.00-11.30)
[2024-01-28 05:34] LABS: Magnesium, Blood 2.6 mg/dL (1.6-2.4)
[2024-01-28 05:38] LABS: Alanine Aminotransfer (ALT/SGP 209 U/L (12-78); Albumin, Blood 1.6 g/dL (3.4-5.0); Albumin/Globulin Ratio 0.3 (0.8-1.8); Alk Phos 365 U/L (50-136); Anion Gap 16 mmol/L (3-11); Aspartate Aminotrans (AST/SGOT 214 U/L (12-37); Bilirubin, Total 0.6 mg/dL (0.1-1.0); Blood Urea Nitrogen 74 mg/dL (8-24); Bun/Creatinine Ratio 20.1 (12.0-20.0); CO2, Blood 20 mmol/L (21-32); Calcium, Blood 9.1 mg/dL (8.5-10.1); Chloride, Blood 107 mmol/L (98-108); Creatinine, Blood 3.69 mg/dL (0.60-1.20); Globulin, Blood 5.2 g/dL (2.2-4.0); Glomerular Filtration Rate 17 (60-); Glucose, Blood 207 mg/dL (70-99); Potassium, Blood 4.8 mmol/L (3.5-5.5); Sodium, Blood 138 mmol/L (136-145); Total Protein, Blood 6.8 g/dL (6.4-8.2)
[2024-01-28 05:40] LABS: Phosphorus, Blood 8.3 mg/dL (2.5-4.9)
--- NOTE | 2024-01-28 05:40 | NUR ---
SHIFT SUMMARY: PATIENT FULLY ORIENTED, COOPERATIVE. DRESSING ON MARLEEN DRAIN CHANGED. 20ML OF DRAINAGE REMOVED. ULTRAM GIVEN. PATIENT SLEPT FAIRLY.
[2024-01-28] MEDS ORDERED: Calcium Acetate 667 MG Gel Cap PO SCH (07:30)
[2024-01-28] MEDS ORDERED: TraMADol HCl 50 MG Tab PO PRN (07:30)
[2024-01-28 08:18] VITALS: BP 130/81
[2024-01-28] MEDS ORDERED: NS 1,000 ML IV SCH (08:20)
[2024-01-28] MEDS ORDERED: Sodium Bicarbonate 650 MG Tab PO SCH (09:00)
[2024-01-28] MEDS ORDERED: Bumetanide 1 MG Tab PO SCH (09:00)
[2024-01-28] MEDS ORDERED: OxyCODONE HCL 5 MG TAB PO PRN (11:00)
[2024-01-28] MEDS ORDERED: Piperacillin/Tazobactam Sod 2.25 GM in NS 50 ML IV SCH (12:00)
[2024-01-28] MEDS ORDERED: Insulin Glargine-Yfgn 100 Unit/mL 3 ML SYR SC SCH (13:00)
[2024-01-28 14:42] VITALS: BP 122/82
[2024-01-28] MEDS ORDERED: Insulin Human Lispro 100 Units/ML 3ML Syringe SC SCH (18:00)
--- NOTE | 2024-01-28 18:26 | NUR ---
SHIFT SUMMARY PT AOX4, SBA TO THE BR TO MANAGE LINES. MARLEEN DRAIN IN THE RUQ, DRAINING RED FLUID. EMPTIED AND DOCUMENTED T/O THE SHIFT. MEDICATED FOR PAIN PER THE EMAR. PT IS ON A 1000ML FLUID RESTRICTION. 24 HOUR URINES IN PROGRESS. PT EDUCATED ON THE IMPORATNC EOF THE FLUID RESTRICTION AND THE PURPOSE OF THE 24 HOUR URINE. NS GOING AT 75. FAMILY AT THE BS T/O THE SHIFT. CALL LIGHT WITHIN REACH, BED LOCKED AND IN THE LOWEST POSITION. WILL REPORT TO ONCOMING NURSE.
[2024-01-28 21:05] VITALS: BP 132/68
[2024-01-29 05:54] LABS: BASOPHILS ABSOLUTE AUTO 0.04 K/mm3 (0.00-0.23); BASOPHILS PERCENT AUTO 0 % (0-2); EOSINOPHILS ABSOLUTE AUTO 0.09 K/mm3 (0.00-0.68); EOSINOPHILS PERCENT AUTO 1 % (0-6); Hemoglobin 9.2 g/dL (13.5-17.5); IMMATURE GRAN ABSOLUTE AUTO 0.54 K/mm3 (0.00-0.10); IMMATURE GRAN PERCENT AUTO 3 % (0-1); LYMPHOCYTES ABSOLUTE AUTO 1.45 K/mm3 (0.84-5.20); LYMPHOCYTES PERCENT AUTO 8 % (21-46); MONOCYTES PERCENT AUTO 4 % (4-13); Mean Corpuscular HGB 30.7 pg (26.0-34.0); Mean Corpuscular HGB Conc 31.7 g/dL (31.5-36.5); Mean Corpuscular Volume 97 fL (80-100); Mean Platelet Volume 11.4 fL (9.1-12.4); NEUTROPHILS ABSOLUTE AUTO 16.52 K/mm3 (1.96-9.15); NEUTROPHILS PERCENT AUTO 85 % (41-73); Platelet Count 305 K/mm3 (150-400); RDW Coefficient Variation 14.2 % (11.7-14.2); RDW Standard Deviation 49.8 fL (35.1-46.3); White Blood Cell Count 19.44 K/mm3 (4.00-11.30)
--- NOTE | 2024-01-29 06:13 | NUR ---
SHIFT SUMMARY: PATIENT FULLY ORIENTED, COOPERATIVE. WALKED WITH FWW TO BATHROOM. ONE BOWEL MOVEMENT. 24 HOUR URINE CATCH CONTINUING UNTIL 0950. PATIENT SLEPT INTERMITTENTLY.
[2024-01-29 06:29] LABS: Albumin, Blood 1.9 g/dL (3.4-5.0); Albumin/Globulin Ratio 0.3 (0.8-1.8); Bilirubin, Total 0.7 mg/dL (0.1-1.0); Bun/Creatinine Ratio 25.9 (12.0-20.0); Calcium, Blood 9.5 mg/dL (8.5-10.1); Creatinine, Blood 2.86 mg/dL (0.60-1.20); Globulin, Blood 5.6 g/dL (2.2-4.0); Magnesium, Blood 2.5 mg/dL (1.6-2.4); Phosphorus, Blood 5.4 mg/dL (2.5-4.9); Potassium, Blood 4.2 mmol/L (3.5-5.5); Total Protein, Blood 7.5 g/dL (6.4-8.2); Uric Acid, Blood 5.8 mg/dL (3.5-7.2)
[2024-01-29 07:35] VITALS: BP 145/73
[2024-01-29 10:42] LABS: Protein, Urine Quantitative 87.2 mg/dL (0.0-11.9)
[2024-01-29 15:38] VITALS: BP 148/95
--- NOTE | 2024-01-29 16:40 | NUR ---
SHIFT SUMMARY PT AOX4, INDEPENDENT IN THE ROOM. [address] BURLESON. MEDICATED FOR PAIN PER THE EMAR. PT IS ON A FULL LIQUID DIET, HE IS HOPING TO ADVANCE SOON. MARLEEN DRAIN IS DRAINING DARK RED FLUID, PROVIDER IS AWARE. PT IS VOIDING WELL, BM THIS MORNING. HE CALLS AND MAKES HIS NEEDS KNOWN. CALL LIGHT WITHIN REACH, BED LOCKED AND IN THE LOWEST POSITION. WILL REPORT TO ONCOMING NURSE.
--- NOTE | 2024-01-29 21:34 | NUR ---
ASSUMPTION OF CARE: THIS RN ASSUMED CARE OF PT AT APPROX 1900. PT ALERT, ORIENTED X4. LAYING DOWN IN BED. DENIES PAIN/SOB/CHEST PRESSURE. VSS. SEE SHIFT ASSESSMENT FOR FURTHER DETAILS. CALL LIGHT IN REACH.
[2024-01-29 23:09] VITALS: BP 148/88
--- NOTE | 2024-01-30 04:20 | NUR ---
END OF SHIFT NOTE: NO ACUTE EVENTS OVERNIGHT. PT A/OX4, ABLE TO CALL APPROPRIATELY & COMMUNICATE NEEDS W/ STAFF. VSS. SPO2 >90% ON ROOM AIR OVERNIGHT, RESPIRATIONS EVEN & UNLABORED. MARLEEN DRAIN W/ 180ML OUTPUT OF TIME OF THIS NOTE. PT DENIES PAIN. INDEPENDENTLY AMBULATING TO RESTROOM NEEDED; 1 BM. REPOSITIONING SELF INDEPENDENTLY T/O SHIFT. Q6 CBG'S, 0000 CBG 194. TOLERATING LIQUID DIET W/ 1500ML FLUID RESTRICTION IN PLACE. NO OTHER NEEDS AT THIS TIME. CALL LIGHT IN REACH, WILL CONTINUE TO MONITOR UNTIL REPORT TO ONCOMING DAY SHIFT RN.
[2024-01-30 04:32] LABS: Hematocrit 27.2 % (37.0-53.0); Hemoglobin 8.5 g/dL (13.5-17.5)
[2024-01-30 04:50] LABS: Albumin, Blood 1.8 g/dL (3.4-5.0); Anion Gap 11 mmol/L (3-11); Blood Urea Nitrogen 52 mg/dL (8-24); Bun/Creatinine Ratio 28.6 (12.0-20.0); CO2, Blood 24 mmol/L (21-32); Calcium, Blood 9.5 mg/dL (8.5-10.1); Chloride, Blood 113 mmol/L (98-108); Creatinine, Blood 1.82 mg/dL (0.60-1.20); Glomerular Filtration Rate 41 (60-); Glucose, Blood 204 mg/dL (70-99); Magnesium, Blood 2.2 mg/dL (1.6-2.4); Phosphorus, Blood 3.6 mg/dL (2.5-4.9); Potassium, Blood 3.8 mmol/L (3.5-5.5); Sodium, Blood 144 mmol/L (136-145)
[2024-01-30 06:17] VITALS: BP 145/74
[2024-01-30 07:57] VITALS: BP 144/90
[2024-01-30] MEDS ORDERED: Bumetanide 1 MG Tab PO SCH (09:00)
[2024-01-30] MEDS ORDERED: Insulin Human Lispro 100 Units/ML 3ML Syringe SC SCH (11:30)
[2024-01-30 15:26] VITALS: BP 151/80
[2024-01-30] MEDS ORDERED: Darbepoetin Alfa in Polysorbat 25 MCG/0.42 ML Syringe SC SCH (16:00)
--- NOTE | 2024-01-30 18:11 | NUR ---
SHIFT SUMMARY PT AOX4, INDEPENDENT IN THE ROOM. CALLS AND MAKES HIS NEEDS KNOWN. MARLEEN DRAIN PATENT AND DRESSING CHANGED THIS SHIFT. OUTPUT IS DECREASING THIS SHIFT AND THE COLOR IS A SIPHONER RED. SWITCHED TO SOLID FOODS THIS SHIFT AND HE IS TOLERATING IT WELL. MEDICATED FOR PAIN PER THE EMAR. 1500ML FLUID RESTRICTION IS STILL IN PLACE. POSSIBLE DC TOMORROW. CALL LIGHT WITHIN REACH, BED LOCKED AND IN THE LOWEST POSITION. WILL REPORT TO ONCOMING NURSE.
[2024-01-30 19:48] VITALS: BP 155/84
[2024-01-31] MEDS ORDERED: NS 50 ML IV ONE (03:37)
[2024-01-31 04:00] VITALS: BP 150/87
[2024-01-31 04:45] LABS: Hematocrit 26.1 % (37.0-53.0); Hemoglobin 8.4 g/dL (13.5-17.5); Mean Corpuscular HGB 31.1 pg (26.0-34.0); Mean Corpuscular HGB Conc 32.2 g/dL (31.5-36.5); Mean Corpuscular Volume 97 fL (80-100); Mean Platelet Volume 11.3 fL (9.1-12.4); Platelet Count 287 K/mm3 (150-400); RDW Standard Deviation 49.8 fL (35.1-46.3); White Blood Cell Count 17.56 K/mm3 (4.00-11.30)
[2024-01-31 05:03] LABS: Albumin, Blood 1.8 g/dL (3.4-5.0); Anion Gap 10 mmol/L (3-11); Blood Urea Nitrogen 32 mg/dL (8-24); Bun/Creatinine Ratio 24.1 (12.0-20.0); CO2, Blood 25 mmol/L (21-32); Chloride, Blood 113 mmol/L (98-108); Creatinine, Blood 1.33 mg/dL (0.60-1.20); Glomerular Filtration Rate 59 (60-); Glucose, Blood 189 mg/dL (70-99); Magnesium, Blood 2.2 mg/dL (1.6-2.4); Phosphorus, Blood 2.9 mg/dL (2.5-4.9); Potassium, Blood 3.8 mmol/L (3.5-5.5); Sodium, Blood 144 mmol/L (136-145)
--- NOTE | 2024-01-31 06:42 | NUR ---
Shift Summary Emptied MARLEEN drain once with 90 mL output which is documented. There is a little more dark red output in the drain right now. Pt is AOx4, independent in the room. He was sleeping on RA but then had brief desats into the low 80's. Put 4L O2 on which is what he's been using while here during sleep. 1500 mL fluid restriction maintaned. No c/o of pain or nausea.
[2024-01-31 07:15] VITALS: BP 156/88
[2024-01-31] MEDS ORDERED: BUME1 PO (13:39)
[2024-01-31] MEDS ORDERED: DOCU100 PO (13:40)
[2024-01-31] MEDS ORDERED: OXAYDO5 M1 PO (13:40)
[2024-01-31] MEDS ORDERED: VISBIOME 112.51 EACH PO (13:41)
[2024-01-31] MEDS ORDERED: AMOCLA875 PO (13:42)
[2024-01-31] MEDS ORDERED: ASPI81CH PO (13:43)
[2024-01-31 14:33] LABS: GBM, IGG MULTIPLEX BEAD ASSAY 3 AU/mL (0-19); MYELOPEROXIDASE (MPO) AB,IGG 1 AU/mL (0-19); SERINE PROTEINASE 3 PR3 AB,IGG 4 AU/mL (0-19)
--- NOTE | 2024-01-31 14:48 | NUR ---
SHIFT/DISCHARGE SUMMARY: PATIENT A/OX4, PLEASANT AND COOPERATIVE c CARE. PATIENT HAS MARLEEN DRAIN TO RUQ OF ABDOMEN c SANGUINEOUS DRAINAIGE, DRESSING C/D/I. PATIENT DENIES PAIN TO SITE, CP/PRESSURE, SOB, N/V AND DIZZINESS. PATIENT TOLERATING DIET WELL, CONTINENT OF BLADDER, AMBULATES TO BATHROOM INDPENDENTLY. PATIENT RECEIVED SCHEDULED MEDS PER EMAR. VITAL SIGNS REVIEWED. PIV TO RAC DC'D BY RNELIZABETH. PATIENT DISCHARGE HOME. DISCHARGE INSTRUCTIONS PACKET GIVEN TO PATIENT. EDUCATE PATIENT REGARDING ADMITTING DX'S OF ACUTE CHOLECYSTITIS c MARLEEN DRAINED PLACED ON 01/25, MARLEEN DRAIN CARE TO HOME, NEW PRESCRIBED RX, F/U c PCP, DR. MATA(GEN SURGEON) AND DR. BURLESON (NEPHROLOGY). PATIENT VERBALIZED UNDERSTANDING AND NO FURTHER QUESTIONS. RX WAS FAXED TO PATIENT PREFERRED [facility] IN [place]. ALL PATIENT PERSONAL BELONGINGS WERE SENT HOME c THE PATIENT. PATIENT LEFT THE ROOM AT 1425 AND TRANSPORTED VIA WHEELCHAIR TO PATIENT ENTRANCE.
[2024-02-02 11:29] LABS: ANTINUCLEAR AB (ANA),HEP-2,IGG <1:80 (<1:80); CYTOPLASM PATTERN AMA
== END 2024-01-31 14:20 | disposition home or self-care (01) | DRG 853 ==
LOC: ER 19:10 → ERHOLD 01-26 00:40 → MEDS 01-26 00:40
PROVIDERS: Emergency Medicine; Family Medicine; Internal Medicine Nephrology; Surgery; ADMIT Student in an Organized Health Care Education/Training Program
PROC: 0W9G0ZZ Drainage of Peritoneal Cavity, Open Approach (ICD-10-PCS; 2024-01-26)
PROC: 8E0W4CZ Robotic Assisted Procedure of Trunk Region, Percutaneous Endoscopic Approach (ICD-10-PCS; 2024-01-26)
PROC: 3E03329 Introduction of Other Anti-infective into Peripheral Vein, Percutaneous Approach (ICD-10-PCS; 2024-01-26)
PROC: 0FT44ZZ Resection of Gallbladder, Percutaneous Endoscopic Approach (ICD-10-PCS; principal; 2024-01-26 13:30)
DX: A41.9 Sepsis, unspecified organism (principal); K65.1 Peritoneal abscess; N17.0 Acute kidney failure with tubular necrosis; K81.0 Acute cholecystitis; I50.32 Chronic diastolic (congestive) heart failure; I13.0 Hypertensive heart and chronic kidney disease with heart failure and stage 1 through stage 4 chronic kidney disease, or unspecified chronic kidney disease; E87.20 Acidosis, unspecified; R65.20 Severe sepsis without septic shock; K82.A1 Gangrene of gallbladder in cholecystitis; G47.33 Obstructive sleep apnea (adult) (pediatric); I25.10 Atherosclerotic heart disease of native coronary artery without angina pectoris; E78.5 Hyperlipidemia, unspecified; R74.01 Elevation of levels of liver transaminase levels; E87.70 Fluid overload, unspecified; E66.01 Morbid (severe) obesity due to excess calories; M10.9 Gout, unspecified; N18.30 Chronic kidney disease, stage 3 unspecified; E11.22 Type 2 diabetes mellitus with diabetic chronic kidney disease; E86.9 Volume depletion, unspecified; D63.1 Anemia in chronic kidney disease; E83.39 Other disorders of phosphorus metabolism; Z88.8 Allergy status to other drugs, medicaments and biological substances; Z91.018 Allergy to other foods; Z99.89 Dependence on other enabling machines and devices; Z98.890 Other specified postprocedural states; Z86.73 Personal history of transient ischemic attack (TIA), and cerebral infarction without residual deficits; Z79.899 Other long term (current) drug therapy; Z79.84 Long term (current) use of oral hypoglycemic drugs
CPT/HCPCS: 36415; 74177; 76705; 80048; 80053; 80069; 82550; 82570; 82947; 83516; 83605; 83690; 83735; 84100; 84156; 84300; 84550; 85014; 85018; 85025; 85027; 85610; 86334; 86335; 87040; 88304; 93306; 94762; 96365-59; 99285-25; A9270; J0881; J1100; J1644; J1815; J1885; J2405; J2543; J2704; J3010; J7030; J7050; J7120; Q9967

== ENCOUNTER → 2024-01-25 | Outpatient (CLI) | payer OTHER ==
[~2024-01-25] MED LIST changes: +CLOP75 PO; +GLIP10ER PO; +KLOR-CON 1010 ME9 PO; +METO50 PO; +MOUNJARO2.5 MG/0.5 SC; +NEURONTIN300 MG PO; +PANT40 PO
[2024-01-25 18:31] LABS: BASOPHILS ABSOLUTE AUTO 0.05 K/mm3 (0.00-0.23); BASOPHILS PERCENT AUTO 0 % (0-2); EOSINOPHILS ABSOLUTE AUTO 0.15 K/mm3 (0.00-0.68); EOSINOPHILS PERCENT AUTO 1 % (0-6); Hematocrit 30.3 % (37.0-53.0); Hemoglobin 9.8 g/dL (13.5-17.5); IMMATURE GRAN ABSOLUTE AUTO 0.26 K/mm3 (0.00-0.10); IMMATURE GRAN PERCENT AUTO 1 % (0-1); LYMPHOCYTES ABSOLUTE AUTO 1.51 K/mm3 (0.84-5.20); LYMPHOCYTES PERCENT AUTO 7 % (21-46); MONOCYTES ABSOLUTE AUTO 0.69 K/mm3 (0.16-1.47); MONOCYTES PERCENT AUTO 3 % (4-13); Mean Corpuscular HGB 30.8 pg (26.0-34.0); Mean Corpuscular HGB Conc 32.3 g/dL (31.5-36.5); Mean Corpuscular Volume 95 fL (80-100); Mean Platelet Volume 10.9 fL (9.1-12.4); NEUTROPHILS ABSOLUTE AUTO 19.96 K/mm3 (1.96-9.15); NEUTROPHILS PERCENT AUTO 88 % (41-73); Platelet Count 293 K/mm3 (150-400); RDW Coefficient Variation 13.6 % (11.7-14.2); RDW Standard Deviation 47.2 fL (35.1-46.3); Red Blood Cell Count 3.18 M/mm3 (4.30-5.90); White Blood Cell Count 22.62 K/mm3 (4.00-11.30)
[2024-01-25 18:45] LABS: Albumin, Blood 1.9 g/dL (3.4-5.0); Albumin/Globulin Ratio 0.3 (0.8-1.8); Bilirubin, Total 0.8 mg/dL (0.1-1.0); Bun/Creatinine Ratio 25.5 (12.0-20.0); Calcium, Blood 9.7 mg/dL (8.5-10.1); Creatinine, Blood 2.04 mg/dL (0.60-1.20); Globulin, Blood 6.1 g/dL (2.2-4.0); Potassium, Blood 4.2 mmol/L (3.5-5.5)
== END ==
LOC: LAB SHORT 18:27 → LAB 18:27
PROVIDERS: Physician Assistant Surgical
DX: R06.02 Shortness of breath (principal)
CPT/HCPCS: 80053; 84484; 85025; 85379

== ENCOUNTER 2024-03-11 19:15 | Emergency (ER) | payer OTHER ==
[~2024-03-11] VITALS: Ht 175.3 cm; Wt 108.9 kg
[~2024-03-11 19:15] MED LIST changes: +AMOCLA875 PO; +BUME1 PO; +DOCU100 PO; +MOUNJARO2.5 MG/0.5 SC; +NEURONTIN300 MG PO; +OXAYDO5 M1 PO; +VISBIOME 112.51 EACH PO
[2024-03-11 19:53] LABS: BASOPHILS ABSOLUTE AUTO 0.04 K/mm3 (0.00-0.23); BASOPHILS PERCENT AUTO 0 % (0-2); EOSINOPHILS ABSOLUTE AUTO 0.05 K/mm3 (0.00-0.68); EOSINOPHILS PERCENT AUTO 0 % (0-6); Hematocrit 29.2 % (37.0-53.0); Hemoglobin 9.6 g/dL (13.5-17.5); IMMATURE GRAN ABSOLUTE AUTO 0.04 K/mm3 (0.00-0.10); IMMATURE GRAN PERCENT AUTO 0 % (0-1); LYMPHOCYTES ABSOLUTE AUTO 1.11 K/mm3 (0.84-5.20); LYMPHOCYTES PERCENT AUTO 9 % (21-46); MONOCYTES ABSOLUTE AUTO 1.28 K/mm3 (0.16-1.47); MONOCYTES PERCENT AUTO 11 % (4-13); Mean Corpuscular HGB Conc 32.9 g/dL (31.5-36.5); Mean Corpuscular Volume 91 fL (80-100); Mean Platelet Volume 12.3 fL (9.1-12.4); NEUTROPHILS ABSOLUTE AUTO 9.65 K/mm3 (1.96-9.15); NEUTROPHILS PERCENT AUTO 79 % (41-73); Platelet Count 212 K/mm3 (150-400); RDW Coefficient Variation 14.7 % (11.7-14.2); RDW Standard Deviation 49.2 fL (35.1-46.3); White Blood Cell Count 12.17 K/mm3 (4.00-11.30)
[2024-03-11 20:12] LABS: Albumin, Blood 2.9 g/dL (3.4-5.0); Albumin/Globulin Ratio 0.6 (0.8-1.8); Bun/Creatinine Ratio 12.7 (12.0-20.0); Calcium, Blood 8.8 mg/dL (8.5-10.1); Creatinine, Blood 0.95 mg/dL (0.60-1.20); Globulin, Blood 4.6 g/dL (2.2-4.0); Potassium, Blood 3.2 mmol/L (3.5-5.5); Total Protein, Blood 7.5 g/dL (6.4-8.2)
[2024-03-11 21:33] LABS: Adenovirus Not Detected (NOT DETECT); Bordetella pertussis Not Detected (NOT DETECT); Chlamydophila pneumoniae Not Detected (NOT DETECT); Coronavirus 229E Not Detected (NOT DETECT); Coronavirus HKU1 Not Detected (NOT DETECT); Coronavirus NL63 Not Detected (NOT DETECT); Coronavirus OC43 Not Detected (NOT DETECT); Human Metapneumovirus Not Detected (NOT DETECT); Human Rhinovirus/Enterovirus Not Detected (NOT DETECT); Influenza A/2009-H1 Not Detected (NOT DETECT); Influenza A/H1 Not Detected (NOT DETECT); Influenza A/H3 Not Detected (NOT DETECT); Influenza B Not Detected (NOT DETECT); Mycoplasma pneumoniae Not Detected (NOT DETECT); Parainfluenza Virus 1 Not Detected (NOT DETECT); Parainfluenza Virus 2 Not Detected (NOT DETECT); Parainfluenza Virus 3 Not Detected (NOT DETECT); Parainfluenza Virus 4 Not Detected (NOT DETECT); Respiratory Syncytial Virus Not Detected (NOT DETECT); SARS-Cov-2 (COVID-19), BioFire Not Detected (NOT DETECT)
[2024-03-11] MEDS ORDERED: Ibuprofen 600 MG Tab PO ONE (21:55)
[2024-03-11] MEDS ORDERED: Amoxicillin/Clavulanate K 875 MG Tab PO ONE (23:50)
[2024-03-11] MEDS ORDERED: AMOCLA875 PO (23:51)
[2024-03-12] VITALS: BP 136/81
== END 2024-03-12 00:02 | disposition home or self-care (01) ==
LOC: ER 19:15
PROVIDERS: Physician Assistant; Student in an Organized Health Care Education/Training Program
DX: R50.9 Fever, unspecified (principal); Z88.8 Allergy status to other drugs, medicaments and biological substances; Z88.1 Allergy status to other antibiotic agents; Z79.899 Other long term (current) drug therapy; Z79.84 Long term (current) use of oral hypoglycemic drugs; Z79.82 Long term (current) use of aspirin; I11.0 Hypertensive heart disease with heart failure; E78.5 Hyperlipidemia, unspecified; I50.9 Heart failure, unspecified; E11.9 Type 2 diabetes mellitus without complications; M10.9 Gout, unspecified; G47.30 Sleep apnea, unspecified
CPT/HCPCS: 0202U; 36415; 74177; 80053; 83605; 83690; 85025; A9270; Q9967